=== PATIENT | male | born 1965 | race Caucasian/White ===

== ENCOUNTER 2017-04-05 07:03 | Day surgery (SDC) | payer BC, OTHER ==
[~2017-04-05 07:03] MED LIST: Lactated Ringers 1,000 ML IV SCH; Lidocaine 1%/Sod Bicarbonate in NS 8.4% 1 ML Syringe PRN; Sodium Chloride 0.9% 10 ML Syringe FLUSH PRN
--- NOTE | 2017-04-05 07:34 | PCM.PREANE ---
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, with follow up with neurologist in April 2017.) Other: Reports: None - Physical Assessment NPO Status Date: 04/04/17 NPO Status Time: 20:30 Pulse: 59 O2 Sat by Pulse Oximetry: 94 Respiratory Rate: 16 Blood Pressure: 117/81 Temperature: 36.7 C Height: 1.83 m Weight: 90.718 kg ASA Class: 1 Mental Status: Alert & Oriented x3 Airway Class: Mallampati = 2 Dentition: Reports: Normal Dentition, Caries Thyro-Mental Finger Breadths: 3 Mouth Opening Finger Breadths: 3 ROM/Head Extension: Full Lungs: Clear to Auscultation, Normal Respiratory Effort Cardiovascular: Regular Rate, Regular Rhythm, No Murmurs - Allergies Allergies/Adverse Reactions: Allergies Allergy/AdvReac Type Severity Reaction Status Date / Time No Known Allergies Allergy Verified 04/04/17 08:41 - Anesthesia Plan Pre-Op Medication Ordered: None - Acknowledgements Anesthesia Type Planned: MAC Pt an Appropriate Candidate for the Planned Anesthesia: Yes Alternatives and Risks of Anesthesia Discussed w Pt/Guardian: Yes Pt/Guardian Understands and Agrees with Anesthesia Plan: Yes PreAnesthesia Questionnaire Other HEENT History: acute pharyngitis Other Musculoskeletal History: Left lower leg age 13 - Past Surgical History Male Surgical History: Reports: Vasectomy - SUBSTANCE USE Smoking Status *Q: Never Smoker Recreational Drug Use History: No - HOME MEDS Home Medications: Home Meds Multivitamin [Multivitamins] 1 cap PO DAILY 04/27/15 [History] - CURRENT (IN HOUSE) MEDS Current Meds: Current Medications Lactated Ringer's (Ringers, Lactated) 1,000 mls @ 125 mls/hr IV ASDIRECTED ARMANDO Stop: 04/05/17 23:00 Lidocaine/Sodium Bicarbonate (Buffered Lidocaine 1% In Ns 8.4%) 0.25 ml .XX ONETIME PRN PRN Reason: Prior to IV Start Stop: 04/05/17 18:00 Sodium Chloride (Saline Flush) 10 ml FLUSH ASDIRECTED PRN PRN Reason: Keep Vein Open Stop: 04/05/17 18:00 Discontinued Medications Fentanyl (Sublimaze) Confirm Administered Dose 100 mcg .ROUTE .STK-MED ONE Stop: 04/05/17 07:39 Lidocaine HCl (Xylocaine-Mpf 1%) Confirm Administered Dose 4 mls @ as directed .ROUTE .STK-MED ONE Stop: 04/05/17 07:38 Midazolam HCl (Versed 1 Mg/Ml) Confirm Administered Dose 2 mg .ROUTE .STK-MED ONE Stop: 04/05/17 07:39 Propofol (Diprivan 20 Ml) Confirm Administered Dose 200 mg .ROUTE .STK-MED ONE Stop: 04/05/17 07:38
[2017-04-05] MEDS ORDERED: Lidocaine 1% 4 ML ONE (07:37)
[2017-04-05] MEDS ORDERED: Propofol 200 MG/20 ML SDV ONE (07:37)
[2017-04-05] MEDS ORDERED: fentaNYL 100 MCG/2 ML SDV ONE (07:38)
[2017-04-05] MEDS ORDERED: Midazolam 1 MG/ML 2 ML SDV ONE (07:38)
--- NOTE | 2017-04-05 07:44 | PCM.OPNOTE ---
- General Post-Op/Procedure Note Date of Surgery/Procedure: 04/05/17 Operative Procedure(s): Screening colonoscopy Findings: 1. Posterior midline anal fissure 2. External hemorrhoids Pre Op Diagnosis: Screening colonoscopy Post-Op Diagnosis: 1. Posterior midline anal fissure. 2. Uncomplicated external small hemorrhoids Anesthesia Technique: MAC, Moderate Sedation Primary Surgeon: Kobe Centeno Pathology: None EBL in mLs: 0 Complications: None Condition: Good Free Text/Narrative:: After adequate IV sedation and analgesia was obtained with monitoring the patient was placed on his left side. Perianal inspection revealed a small acute posterior midline anal fissure and digital rectal examination revealed normal a prostate. A lubricated colonoscope was inserted into the rectum then advanced under direct vision to the cecum without difficulty. The bowel preparation was excellent. The cecum ascending colon transverse and descending colons were endoscopically normal with no mass lesions or inflammatory changes seen. The sigmoid was unremarkable as well. The rectum and both views was endoscopically normal as well. Air was removed as I finished the procedure which he tolerated well. 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
--- NOTE | 2017-04-05 08:31 | PCM48HPAN ---
Post Anesthesia Note - EVALUATION WITHIN 48HRS OF ANESTHETIC Vital Signs in Normal Range: Yes Patient Participated in Evaluation: Yes Respiratory Function Stable: Yes Airway Patent: Yes Cardiovascular Function Stable: Yes Hydration Status Stable: Yes Pain Control Satisfactory: Yes Nausea and Vomiting Control Satisfactory: Yes Mental Status Recovered: Yes
[2017-04-05 09:26] VITALS: BP 108/66
== END 2017-04-05 09:25 | disposition home or self-care (01) ==
LOC: JD.SDS 07:03
PROVIDERS: ATTEND Surgery
DX: Z12.11 Encounter for screening for malignant neoplasm of colon (principal); K60.2 Anal fissure, unspecified; K64.4 Residual hemorrhoidal skin tags; Z98.52 Vasectomy status; Z79.899 Other long term (current) drug therapy
CPT/HCPCS: 45378; J2250; J3010; J7120; 00810; J2704

== ENCOUNTER 2023-12-14 05:38 | Emergency (ER) | payer SELFPAY ==
[2023-12-14] MEDS: Tetracaine HCl/PF 0.5% 4 ML Bottle EYELF ONE (06:30)
[2023-12-14] MEDS: Fluorescein 1 MG Ophth Strip EYELF ONE (06:30)
[2023-12-14 07:05] VITALS: BP 142/85; PULSE 78
[2023-12-14] MEDS: Ofloxacin 0.3% Ophth Soln 5 ML Bottle EYERT ONE (07:08)
== END 2023-12-14 07:08 | disposition home or self-care (01) ==
LOC: JD.ED 05:38
DX: S05.02XA Injury of conjunctiva and corneal abrasion without foreign body, left eye, initial encounter (principal); X58.XXXA Exposure to other specified factors, initial encounter
CPT/HCPCS: 99282; 99283; A9270-GY; J3490